=== PATIENT | female | born 1990 | race Caucasian/White ===

== ENCOUNTER 2021-06-05 15:47 | Emergency (ER) | payer SELFPAY ==
[~2021-06-05] VITALS: Ht 170.2 cm; Wt 63.5 kg
[2021-06-05 15:50] VITALS: BP 101/68
--- NOTE | 2021-06-05 15:58 | NUR ---
Patient assisted from [facility] onto bed 04 by blanket move.
--- NOTE | 2021-06-05 16:05 | NUR ---
Dr. Lester is evaluating patient at bedside.
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
--- NOTE | 2021-06-05 16:11 | NUR ---
RAD at bedside
[2021-06-05] MEDS ORDERED: DEXTROSE 10% 1,000 ML IV ONE (16:21)
[2021-06-05] MEDS: NACL 0.9% 1,000 ML IV ONE (16:25)
[2021-06-05] MEDS: DEXTROSE 10% 500 ML IV SCH (16:25)
[2021-06-05 16:38] LABS: BASOPHILS # (AUTO) 0.1 K/uL (0.00-0.22); BASOPHILS % (AUTO) 1.2 % (0.0-2.0); EOSINOPHILS # (AUTO) 0.4 K/uL (0-0.4); EOSINOPHILS % (AUTO) 3.1 % (0.0-4.0); HEMOGLOBIN 10.6 g/dL (12.0-16.0); LYMPHOCYTES # (AUTO) 2.5 K/uL (2.5-16.5); LYMPHOCYTES % (AUTO) 22.1 % (20.5-51.1); MEAN CORPUSCULAR HEMOGLOBIN 27 pg (27-31); MEAN CORPUSCULAR HGB CONC 33 g/dL (33-37); MEAN CORPUSCULAR VOLUME 82.5 fL (80-94); MONOCYTES # (AUTO) 0.7 K/uL (0.8-1.0); MONOCYTES % (AUTO) 6.3 % (1.7-9.3); NEUTROPHILS # (AUTO) 7.5 K/uL (1.8-7.7); NEUTROPHILS % (AUTO) 67.3 % (42.2-75.2); PLATELET COUNT (AUTO) 298 K/uL (140-450); RED BLOOD CELL COUNT(AUTO) 3.88 MIL/uL (4.20-5.40); RED CELL DISTRIBUTION WIDTH 15.8 % (11.6-13.7); WHITE BLOOD COUNT (AUTO) 11.2 K/uL (4.8-10.8)
[2021-06-05 17:00] LABS: ACETAMINOPHEN < 0.5 ug/ml (10-30); ALBUMIN 4.2 g/dL (3.4-5.0); ANION GAP 15.5 (8-16); ASPARTATE AMINOTRANSFERASE 23 U/L (15-37); CARBON DIOXIDE 25.2 mmol/L (21-32); CHLORIDE 105 mmol/L (98-107); CREATININE 0.7 mg/dL (0.6-1.3); GFR ARICAN-AMERICAN 128 mL/min (>90); GLUCOSE 81 mg/dL (74-106); POTASSIUM 3.7 mmol/L (3.5-5.1); SALICYLATE < 2.8 mg/dL (2.8-20.0); SODIUM SERUM 142 mmol/L (136-145); TOTAL BILIRUBIN 0.3 mg/dL (0.0-1.0); UREA NITROGEN, BLOOD 14 mg/dL (7-18)
--- NOTE | 2021-06-05 17:07 | NUR ---
Patient d/c'd from cardiac cath technician and IV infusion pump and transported to CT by tavo.
--- NOTE | 2021-06-05 17:22 | NUR ---
PT BACK FROM CT SCAN
[2021-06-05] MEDS: NALOXONE 0.4 MG/ML VIAL IVP ONE (17:37)
--- NOTE | 2021-06-05 17:38 | NUR ---
Patient A&Ox2 to name, place at this time.
--- NOTE | 2021-06-05 18:15 | NUR ---
Patient arousable to painful stimuli, able to answer name/ and place.
--- NOTE | 2021-06-05 18:36 | NUR ---
Patient with both eyes closed laying on R side with IVF continued. pvc monitor in place; VSS respirations even/unlabored.
--- NOTE | 2021-06-05 18:51 | NUR ---
Dr. Lester is reevaluating patient at bedside
--- NOTE | 2021-06-05 19:20 | NUR ---
RECEIVED IN BED 4 WITH EYES CLOSED. AWAKENS WITH TACTILE STIMULATION , THEN RETURNS TO RESTING WITH EYES CLOSED. IS SLOW TO ANSWERS QUESTIONS. DENIES DRUG AND ALCOHOL USE.
--- NOTE | 2021-06-05 19:21 | NUR ---
Report and transfer of care endorsed to DIVINA Gonzalez
--- NOTE | 2021-06-05 21:27 | NUR ---
AWAKE, AMBULATED TO BR WITH STEADY GAIT
[2021-06-05 21:40] LABS: APPEARANCE,URINE CLEAR (CLEAR); BILIRUBIN,URINE NEGATIVE (NEGATIVE); BLOOD, URINE TRACE-I (NEGATIVE); COLOR,URINE YELLOW (YELLOW); LEUKOCYTE ESTERASE ,URINE NEGATIVE (NEGATIVE); NITRITE, URINE NEGATIVE (NEGATIVE); UGLUCOSE NEGATIVE (NEGATIVE)
[2021-06-05 21:49] LABS: RBC,URINE 0-5 /HPF (0-5); WBC,URINE 0-5 /HPF (0-5)
[2021-06-05 21:52] LABS: BARBITURATE, URINE NEGATIVE ng/ml (NEG <=200); BENZODIAZEPINE, URINE POSITIVE ng/mL (NEG <=200); CANNABINOID, URINE POSITIVE ng/mL (NEG <=50); COCAINE, URINE POSITIVE ng/mL (NEG <=300); OPIATE, URINE NEGATIVE ng/mL (NEG <=2000); PHENCYCLIDINE SCREEN,URINE NEGATIVE ng/mL (NEG <=25)
[2021-06-05 23:05] VITALS: BP 110/69
--- NOTE | 2021-06-05 23:05 | NUR ---
Patient discharged with v/s stable. Written and verbal after care instructions given and explained. Patient verbalized understanding. Ambulatory with steady gait. All questions addressed prior to discharge. Advised to follow up with PMD.
--- NOTE | 2021-06-09 12:37 | NUR ---
LATE ENTRY- DEXTROSE 10% DISCONTINUED AT 2305.
== END 2021-06-05 23:05 | disposition home or self-care (01) ==
LOC: MED 15:47
DX: F19.10 Other psychoactive substance abuse, uncomplicated (principal); F10.129 Alcohol abuse with intoxication, unspecified; Y90.9 Presence of alcohol in blood, level not specified
CPT/HCPCS: 36415; 70450; 71045; 80053; 80305; 81001; 84484; 84703; 85025; 93005; 96365; 96375; 99285; G0480; G0482; J2310; J7030; Q0092